=== PATIENT | female | born 1970 | race African-American/Black ===

== ENCOUNTER 2021-07-04 17:02 | Emergency (ER) | payer MEDICARE, MEDICAID ==
[~2021-07-04] VITALS: Ht 172.7 cm; Wt 114.0 kg
[~2021-07-04 17:02] MED LIST: HYDR-4005; NORCO; NORF; SOMA
[2021-07-04 17:09] VITALS: BP 155/98
[2021-07-04 17:47] LABS: BASOPHILS % 0.9 % (0.0-2.0); EOSINOPHILS % 2.9 % (0.0-5.0); HEMATOCRIT. 39.8 % (36.0-48.0); LYMPHOCYTES % 44.3 % (20.0-50.0); MEAN CORPUSCULAR HEMOGLOBIN 28.8 pg (28.0-32.0); MEAN CORPUSCULAR VOLUME 88.2 fL (81.0-99.0); MEAN PLATELET VOLUME 10.4 fl (7.4-10.4); MONOCYTES % 5.9 % (2.0-8.0); PLATELET 195 x1000/uL (130-400); RED BLOOD CELL COUNT 4.52 mill/uL (4.2-5.4); RED CELL DISTRIBUTION WIDTH 14.3 % (11.6-14.6)
[2021-07-04 17:49] LABS: CHLORIDE 102 mEq/L (98-107)
[2021-07-04 18:00] LABS: HCG SCREEN NEGATIVE
[2021-07-04] MEDS ORDERED: ASPIRIN 81MG TABLET PO ONE (22:45)
[2021-07-04] MEDS ORDERED: NITROGLYCERIN 0.4MG TABLET SL SL PRN (22:45)
== END 2021-07-05 02:50 | disposition left against medical advice (07) ==
LOC: ER 17:02
DX: R07.89 Other chest pain (principal); R73.03 Prediabetes; E78.00 Pure hypercholesterolemia, unspecified; Z98.1 Arthrodesis status; Z88.0 Allergy status to penicillin; Z82.49 Family history of ischemic heart disease and other diseases of the circulatory system
CPT/HCPCS: 36415; 71045; 80053; 83880; 84484; 84703; 85025; 93005; 99285